=== PATIENT | female | born 1960 | race Caucasian/White ===

== ENCOUNTER → 2017-01-19 | Outpatient (CLI) | payer OTHER ==
[2017-01-19 16:38] VITALS: BP 133/64; PULSE 73; RESP 16; TEMP 98.1; BMI 34.3
[2017-01-19 18:07] LABS: CH 28.2; CHCM 32.8; HCT 37.7 % (34.0-46.0); HDW 2.44; HGB 12.6 gm/dL (11.4-16.0); MCHC 33.5 g/dL (31.0-37.0); MCV 86.5 fL (80.0-100.0); Mean Platelet Volume 9.9; RBC 4.36 m/uL (3.80-5.40); RDW 12.9 % (11.5-15.5); WBC 5.9 k/uL (3.8-10.6)
[2017-01-19 18:20] LABS: Hemoglobin A1C 5.9 % (4.2-6.1)
[2017-01-19 18:32] LABS: Partial Thromboplastin Time 22.9 sec (22.0-30.0); Prothrombin Time 10.3 sec (9.0-12.0)
[2017-01-19 18:41] LABS: ALT 39 U/L (9-52); AST 23 U/L (14-36); Alkaline Phosphatase 82 U/L (38-126); Anion Gap 9 mmol/L; Blood Urea Nitrogen 11 mg/dL (7-17); Calcium 9.7 mg/dL (8.4-10.2); Carbon Dioxide 29 mmol/L (22-30); Chloride 105 mmol/L (98-107); Cholesterol 111 mg/dL (<200); Glucose 87 mg/dL (74-99); HDL Cholesterol 51 mg/dL (40-60); Iron 46 ug/dL (37-170); Non-African American GFR(MDRD) >60 (>60 ml/min/1.73 sqM); Phosphorous 3.7 mg/dL (2.5-4.5); Potassium 5.1 mmol/L (3.5-5.1); Sodium 143 mmol/L (137-145); Total Bilirubin 1.3 mg/dL (0.2-1.3); Total Protein 6.9 g/dL (6.3-8.2); Triglycerides 115 mg/dL (<150)
[2017-01-19 18:50] LABS: Prealbumin 30 mg/dL (18-36); Total Iron Binding Capacity 302 ug/dL (265-497)
[2017-01-19 19:45] LABS: Vitamin B12 418 pg/mL (239-931)
[2017-01-24 18:28] LABS: Selenium 172 mcg/L (63-160)
--- NOTE | 2017-02-23 00:29 | P.PN ---
Progress Note - Text DATE OF SERVICE: 01/19/2017 CHIEF COMPLAINT: Followup gastric bypass. HISTORY OF PRESENT ILLNESS: Lizy Izquierdo is a 56-year-old female, status post gastric bypass March 2015. She is now one year out. Her highest weight in the program was 282 pounds. Her ideal body weight for a 5 foot, 2 frame is 135 pounds. Today she comes in weighing 187 pounds. She has lost 95 pounds in one year. Percent excess weight loss is 64%. Body mass index is reduced from 51.7 down to 34.3. Total BMI point reduction is 17.3. Separately, she reports increased stress in her life whereby she started to eat more for stress eating. She has gained 17 pounds in 4 months. She reports excellent control of her diabetes. She still takes lisinopril for blood pressure, particularly for kidney protection. PAST MEDICAL HISTORY: 1. Super morbid obesity. 2. Obstructive sleep apnea. 3. Diabetes type 2. 4. Hypothyroidism. 5. Gastroesophageal reflux disease. 6. Osteoarthritis. 7. Hypertension. PAST SURGICAL HISTORY: 1. Open cholecystectomy. 2. Upper endoscopy. 3. Status post Elijah-en-Y gastric bypass. MEDICATIONS: 1. Carafate. 2. Prilosec. 3. Nystatin powder. 4. Multivitamin. 5. Synthroid. 6. Lasix. 7. Enalapril. 8. Calcium citrate. 9. Dulcolax. 10. Lipitor. ALLERGIES: Denies. SOCIAL HISTORY: Past tobacco user. FAMILY HISTORY: Denies any Crohn's or ulcerative colitis. No reports of heart condition, DVTs or blood clots within her family. REVIEW OF SYSTEMS: CONSTITUTIONAL: [place] body weight of 135 pounds. Highest weight of 282 pounds. Presently 187 pounds. Weight loss of 95 pounds. Percent excess of 54%. She has gained 17 pounds in 4 months. Body mass index reduced from 51.7 down to 34.3. Total BMI point reduction is 17.3. GASTROINTESTINAL: No reports of dumping syndrome or gastroesophageal reflux disease. ENDOCRINE: History of diabetes type 2, now controlled. Hemoglobin A1c has been 5.6. No reports of active hypothyroidism. RESPIRATORY: Obstructive sleep apnea resolved. CARDIOVASCULAR: Moderate reduction of any hypertension medications including cholesterol medications have been discontinued. MUSCULOSKELETAL: Moderate reduction of her hip including knee pain as well as lower back pain. HEENT: Denies any trouble with vision or hearing. NEUROLOGIC: Denies any headaches or seizure disorders. PSYCH: No reports of depression or suicidal ideation. PHYSICAL EXAM: VITAL SIGNS: 98.1, 73, 16, 133/64; 5 foot 2, 187 pounds. Body mass index 34.3. ABDOMEN: Soft, nontender, nondistended. No palpable incisional hernias. Pannus extends over pubis by over 7 cm. Mild hyperemia noted. GENERAL: Well-developed female in no acute distress. HEENT: No sclera icterus. Extraocular movements grossly intact. NECK: Supple without lymphadenopathy. No JV distention. CHEST: Non-labored respirations and equal bilateral excursions. CARDIOVASCULAR: Regular rate and rhythm. Palpable 2+ radial pulses. MUSCULOSKELETAL: No clubbing, cyanosis or edema. NEUROLOGIC: No focal or lateralizing signs. PSYCH: Appropriate affect. Alert and oriented to person, place and time. LABS: Hemoglobin normal at 12.6. Platelets were 149. Glucose normal at 87. Hemoglobin A1c normal at 5.9. This is reduced from as high as 8.1. Copper was low at 808. Sodium was elevated at 172. ASSESSMENT: 1. Morbid obesity due to excess calories, resolved. 2. Body mass index reduced from 51.7 down to 34.3. 3. Status post Elijah-en-Y gastric bypass. 4. History of gastrojejunal stricture, now resolved. 5. Dysphagia, resolved. 6. Diabetes type 2, insulin-dependent, now resolved. 7. Vitamin B12 deficiency. 8. Elevated bilirubin level. 9. Panniculitis. 10. Status post massive weight loss of 112 pounds. 11. Copper deficiency. 12. Dietary surveillance and counseling. 13. Weight gain following a bariatric procedure. 14. Selenium elevation. PLAN: 1. Would recommend discontinuing increased selenium-enriched foods. 2. Recommend copper rich diet or copper supplement. 3. Overall, she has done fairly well with maintaining weight loss of 64% in over 2 years. 4. She will also follow up with her primary care provider for medical management as well.
== END | disposition home or self-care (01) ==
LOC: BARWHC3 15:22
PROVIDERS: ATTEND Surgery Plastic and Reconstructive Surgery
DX: Z48.815 Encounter for surgical aftercare following surgery on the digestive system (principal); Z98.84 Bariatric surgery status; E21.1 Secondary hyperparathyroidism, not elsewhere classified; E89.1 Postprocedural hypoinsulinemia; D50.8 Other iron deficiency anemias; E44.0 Moderate protein-calorie malnutrition; E55.9 Vitamin D deficiency, unspecified; K74.1 Hepatic sclerosis; N19 Unspecified kidney failure; K50.90 Crohn's disease, unspecified, without complications
CPT/HCPCS: 80053; 80061; 82306; 82525; 82607; 82728; 82746; 83036; 83540; 83550; 83735; 83970; 84100; 84134; 84255; 84425; 84439; 84443; 84590; 84630; 85027; 85610; 85730; 99211

== ENCOUNTER → 2017-12-27 | Outpatient (CLI) | payer OTHER ==
--- NOTE | 2017-12-27 23:17 | MR ---
EXAMINATION TYPE: MR lumbar spine wo con DATE OF EXAM: 12/27/2017 COMPARISON: CT abdomen and pelvis May 21, 2015. HISTORY: Gastric bypass 2015, Low back pain TECHNIQUE: Multiplanar, multisequence imaging of the lumbar spine is performed without IV contrast. FINDINGS: Examination is suboptimal due to patient motion, cannot perform repeat sequences due to cla ustrophobia. Sagittal images of the lumbar spine show vertebral body height to appear satisfactory. There is slight grade 1 retrolisthesis of L5 on S1 redemonstrated. Multilevel disc desiccation is pre sent. There is moderate disc space narrowing L5-S1 level redemonstrated. Note is made of moderate dis c space narrowing with posterior disc herniation T11-T12 level mildly effacing anterior thecal sac an d sagittal images. The conus medullaris is normal in position and signal ending in inferior L1 level. The bone marrow signal intensity is within normal limits. Mild multilevel anterior spurring is pres ent. Axial images at the T12-L1 level shows mild broad disc bulge with right paracentral disc protrusion m ildly effacing the anterior thecal sac and mild facet degenerative changes bilaterally. Bilateral kervin ral foramina are patent. Axial images at L1-L2 and L2-L3 levels show mild facet degenerative changes bilaterally but spinal ca nal is preserved and the bilateral neural foramina are patent. Axial images at L3-L4 level shows mild broad-based disc bulge and [id number] facet degenerative changes bilaterally. Bilateral neural foramina are patent. There is mild effacement of the anterior thecal sac. Axial images at L4-L5 level shows moderate facet degenerative changes bilaterally. Spinal canal is pr eserved. Bilateral neural foramina are patent. Axial images at L5-S1 level show [id number] facet degenerative changes bilaterally. There is sp ondylolisthesis with broad-based posterior disc protrusion minimally effacing anterior thecal sac. Th ere is mild right greater than left bilateral neural foraminal narrowing seen at this level. No suspicious retroperitoneal findings are seen. IMPRESSION: Multilevel degenerative changes in the lumbar spine as detailed above.
== END | disposition home or self-care (01) ==
LOC: RADMRIMAIN 20:09
PROVIDERS: ATTEND Physical Medicine & Rehabilitation
DX: M47.27 Other spondylosis with radiculopathy, lumbosacral region (principal); M47.25 Other spondylosis with radiculopathy, thoracolumbar region
CPT/HCPCS: 72148

== ENCOUNTER → 2018-03-15 | Outpatient (CLI) | payer OTHER ==
[2018-03-15 16:14] VITALS: BP 101/58; PULSE 58; TEMP 97.6; BMI 38.2
--- NOTE | 2018-03-15 17:02 | P.PN ---
Subjective Progress Note Date: 03/15/18 DATE OF SERVICE: 03/15/2018 CHIEF COMPLAINT: Followup gastric bypass. HISTORY OF PRESENT ILLNESS: Lizy Izquierdo is a 56-year-old female, status post gastric bypass March 2015. She was last seen 01/19/2017. She is now 3 years out. Her highest weight in the program was 282 pounds. Her ideal body weight for a 5 foot, 2 frame is 135 pounds. Today she comes in weighing 209 pounds since her last weight of 187 pounds. She has gained 20 pounds and is now on steroids for her back. Total weight gain of 40 pounds since her lowest. She reports trouble with pain of her back preventing her from moving. She has lost 95 pounds in one year. Percent excess weight loss is 64%. Body mass index is reduced from 51.7 down to 34.3. Total BMI point reduction is 17.3. Separately, she reports increased stress in her life whereby she started to eat more for stress eating. She has gained 17 pounds in 4 months. She reports excellent control of her diabetes. She still takes lisinopril for blood pressure, particularly for kidney protection. PAST MEDICAL HISTORY: 1. Super morbid obesity. 2. Obstructive sleep apnea. 3. Diabetes type 2. 4. Hypothyroidism. 5. Gastroesophageal reflux disease. 6. Osteoarthritis. 7. Hypertension. PAST SURGICAL HISTORY: 1. Open cholecystectomy. 2. Upper endoscopy. 3. Status post Eiljah-en-Y gastric bypass. MEDICATIONS: 1. Carafate. 2. Prilosec. 3. Nystatin powder. 4. Multivitamin. 5. Synthroid. 6. Lasix. 7. Enalapril. 8. Calcium citrate. 9. Dulcolax. 10. Lipitor. ALLERGIES: Denies. SOCIAL HISTORY: Past tobacco user. FAMILY HISTORY: Denies any Crohn's or ulcerative colitis. No reports of heart condition, DVTs or blood clots within her family. REVIEW OF SYSTEMS: CONSTITUTIONAL: [place] body weight of 135 pounds. Highest weight of 282 pounds. GASTROINTESTINAL: No reports of dumping syndrome or gastroesophageal reflux disease. ENDOCRINE: History of diabetes type 2, now controlled. Hemoglobin A1c has been 5.6. No reports of active hypothyroidism. RESPIRATORY: Obstructive sleep apnea resolved. CARDIOVASCULAR: Moderate reduction of any hypertension medications including cholesterol medications have been discontinued. MUSCULOSKELETAL: Moderate reduction of her hip including knee pain as well as lower back pain. HEENT: Denies any trouble with vision or hearing. NEUROLOGIC: Denies any headaches or seizure disorders. PSYCH: No reports of depression or suicidal ideation. PHYSICAL EXAM: VITAL SIGNS: 98.1, 73, 16, 133/64; 5 foot 2, 187 pounds. Body mass index 34.3. Vital Signs Temp 97.6 F 03/15/18 16:11 Pulse 58 L 03/15/18 16:11 Resp BP 101/58 03/15/18 16:11 Pulse Ox Intake & Output 03/14/18 03/15/18 03/15/18 18:59 06:59 18:59 Weight 94.846 kg ABDOMEN: Soft, nontender, nondistended. No palpable incisional hernias. Pannus extends over pubis by over 7 cm. Mild hyperemia noted. GENERAL: Well-developed female in no acute distress. HEENT: No sclera icterus. Extraocular movements grossly intact. NECK: Supple without lymphadenopathy. No JV distention. CHEST: Non-labored respirations and equal bilateral excursions. CARDIOVASCULAR: Regular rate and rhythm. Palpable 2+ radial pulses. MUSCULOSKELETAL: No clubbing, cyanosis or edema. NEUROLOGIC: No focal or lateralizing signs. PSYCH: Appropriate affect. Alert and oriented to person, place and time. LABS: Hemoglobin normal at 12.6. Platelets were 149. Glucose normal at 87. Hemoglobin A1c normal at 5.9. This is reduced from as high as 8.1. Copper was low at 808. Sodium was elevated at 172. ASSESSMENT: 1. Morbid obesity due to excess calories, resolved. 2. Body mass index reduced from 51.7 down to 34.3. 3. Status post Elijah-en-Y gastric bypass. 4. History of gastrojejunal stricture, now resolved. 5. Dysphagia, resolved. 6. Diabetes type 2, insulin-dependent, now resolved. 7. Vitamin B12 deficiency. 8. Elevated bilirubin level. 9. Panniculitis. 10. Status post massive weight loss of 112 pounds. 11. Copper deficiency. 12. Dietary surveillance and counseling. 13. Weight gain following a bariatric procedure. 14. Selenium elevation. PLAN: 1. She is adjusting her diet after gaining over 40 pounds. 2. Recommend 2 week protein diet. 3. She has severe lower back pain. 4. Recommend bariatric metabolic panel. Objective - Vital Signs Vital signs: Vital Signs Temp 97.6 F 03/15/18 16:11 Pulse 58 L 03/15/18 16:11 Resp BP 101/58 03/15/18 16:11 Pulse Ox Intake & Output 03/14/18 03/15/18 03/15/18 18:59 06:59 18:59 Weight 94.846 kg
== END | disposition home or self-care (01) ==
LOC: BARWHC3 15:16
PROVIDERS: ATTEND Surgery Plastic and Reconstructive Surgery
DX: Z09 Encounter for follow-up examination after completed treatment for conditions other than malignant neoplasm (principal); M79.3 Panniculitis, unspecified; E53.8 Deficiency of other specified B group vitamins; E80.7 Disorder of bilirubin metabolism, unspecified; R63.4 Abnormal weight loss; E61.0 Copper deficiency; M54.5 Low back pain; E03.9 Hypothyroidism, unspecified; G47.33 Obstructive sleep apnea (adult) (pediatric); Z90.49 Acquired absence of other specified parts of digestive tract; Z71.3 Dietary counseling and surveillance; Z98.84 Bariatric surgery status; Z98.890 Other specified postprocedural states; Z79.899 Other long term (current) drug therapy; Z87.891 Personal history of nicotine dependence; Z68.34 Body mass index [BMI] 34.0-34.9, adult
CPT/HCPCS: 99211

== ENCOUNTER → 2018-03-30 | Outpatient (CLI) | payer OTHER ==
--- NOTE | 2018-03-31 09:54 | MM ---
Reason for exam: screening (asymptomatic). Last mammogram was performed 2 years ago. History: Patient is postmenopausal and is nulliparous. Family history of breast cancer in maternal cousin. Benign stereotactic core biopsy of the left breast, February 15, 2002. Physical Findings: A clinical breast exam by your physician is recommended on an annual basis and results should be correlated with mammographic findings. MG Screening Mammo w CAD Bilateral CC and MLO view(s) were taken. Prior study comparison: April 01, 2016, bilateral MG screening mammo w CAD. December 02, 2014, bilateral MG screening mammo w CAD. There are scattered fibroglandular densities. No significant changes when compared with prior studies. ASSESSMENT: Benign, BI-RAD 2 RECOMMENDATION: Routine screening mammogram of both breasts in 1 year.
== END | disposition home or self-care (01) ==
LOC: RADMAMWWP 15:15
PROVIDERS: ATTEND Obstetrics & Gynecology
DX: Z12.31 Encounter for screening mammogram for malignant neoplasm of breast (principal)
CPT/HCPCS: 77067

== ENCOUNTER → 2018-03-30 | Outpatient (CLI) | payer OTHER ==
[2018-03-30 16:22] LABS: HCT 38.2 % (34.0-46.0); HGB 12.1 gm/dL (11.4-16.0); MCH 27.4 pg (25.0-35.0); MCHC 31.7 g/dL (31.0-37.0); MCV 86.3 fL (80.0-100.0); Platelet Count 153 k/uL (150-450); RBC 4.42 m/uL (3.80-5.40); RDW 13.5 % (11.5-15.5)
[2018-03-30 16:33] LABS: Partial Thromboplastin Time 22.5 sec (22.0-30.0); Prothrombin Time 9.5 sec (9.0-12.0)
[2018-03-30 16:40] LABS: ALT 42 U/L (9-52); AST 30 U/L (14-36); Albumin 4.2 g/dL (3.5-5.0); Alkaline Phosphatase 80 U/L (38-126); Anion Gap 13 mmol/L; Blood Urea Nitrogen 13 mg/dL (7-17); Calcium 9.7 mg/dL (8.4-10.2); Carbon Dioxide 28 mmol/L (22-30); Chloride 104 mmol/L (98-107); Cholesterol 144 mg/dL (<200); Glucose 174 mg/dL (74-99); HDL Cholesterol 56 mg/dL (40-60); LDL Cholesterol,Calculated 54 mg/dL (0-99); Magnesium 1.9 mg/dL (1.6-2.3); Phosphorus 4.5 mg/dL (2.5-4.5); Potassium 4.2 mmol/L (3.5-5.1); Sodium 145 mmol/L (137-145); Total Bilirubin 0.9 mg/dL (0.2-1.3); Total Protein 6.7 g/dL (6.3-8.2); Triglycerides 171 mg/dL (<150)
[2018-03-31 00:34] LABS: Iron Saturation 16.49 (12.00-45.00)
[2018-03-31 00:44] LABS: Vitamin D 25 Hydroxy 25.6 ng/mL (30.0-100.0)
[2018-03-31 00:48] LABS: Folate, Serum >24.0 ng/mL
[2018-03-31 01:24] LABS: Hemoglobin A1C 6.4 % (4.0-6.0)
[2018-03-31 15:30] LABS: Zinc, Serum 63 ug/dL (60-130)
[2018-04-01 10:12] LABS: Vitamin A 58 ug/dL (38-106)
[2018-04-03 06:15] LABS: Vitamin B1 63 ug/L (38-122)
== END ==
LOC: LABWHC1 15:37
PROVIDERS: ATTEND Surgery Plastic and Reconstructive Surgery
DX: E66.01 Morbid (severe) obesity due to excess calories (principal); E21.1 Secondary hyperparathyroidism, not elsewhere classified; E89.1 Postprocedural hypoinsulinemia; D50.8 Other iron deficiency anemias; E44.0 Moderate protein-calorie malnutrition; E55.9 Vitamin D deficiency, unspecified; K74.1 Hepatic sclerosis; N19 Unspecified kidney failure; K50.90 Crohn's disease, unspecified, without complications
CPT/HCPCS: 36415; 77067; 80053; 80061; 82306; 82525; 82607; 82728; 82746; 83036; 83540; 83550; 83735; 83970; 84100; 84134; 84255; 84425; 84443; 84590; 84630; 85027; 85610; 85730

== ENCOUNTER 2018-09-03 16:04 | Emergency (ER) | payer OTHER ==
[2018-09-03 16:18] VITALS: BP 143/74; PULSE 102; RESP 18; TEMP 98.7
[2018-09-03] MEDS ORDERED: HYDROmorphone 1 MG/ML 1 ML SYRINGE IVP STA (16:46)
[2018-09-03] MEDS ORDERED: DIAZEPAM 5 MG TAB PO STA (16:46)
[2018-09-03] MEDS ORDERED: IBUPROFEN 800 MG TAB PO STA (16:46)
--- NOTE | 2018-09-03 16:47 | ED ---
Neck Injury/Pain HPI - General Chief Complaint: Extremity Injury, Upper Stated Complaint: Neck/Shoulder Pain Time Seen by Provider: 09/03/18 16:33 Source: RN notes reviewed, old records reviewed Mode of arrival: wheelchair Limitations: no limitations - History of Present Illness Initial Comments: This is a 58-year-old female the ER for evaluation. Patient complaining today for evaluation of neck pain severe neck pain. Patient has neck pain torticollis , history of same. Patient states she slept in a chair and woke up with symptoms, no trauma. Patient denies any other significant complaints area patient does have history of back pain - Related Data Home Medications Medication Instructions Recorded Confirmed Levothyroxine Sodium [Synthroid] 112 mcg PO QAM 01/14/15 03/15/18 Enalapril [Vasotec] 2.5 mg PO QAM 04/16/15 03/15/18 Atorvastatin Calcium [Lipitor] 10 mg PO DAILY 08/13/15 03/15/18 Bisacodyl [Dulcolax] 5 mg PO DAILY 03/01/16 03/15/18 Calcium Citrate 500 mg PO BID 03/01/16 03/15/18 Furosemide 40 mg PO DAILY 03/01/16 03/15/18 Multivitamins, Thera [Multivitamin] 1 tab PO DAILY 01/19/17 03/15/18 Allergies Allergy/AdvReac Type Severity Reaction Status Date / Time No Known Allergies Allergy Verified 09/03/18 16:18 Review of Systems ROS Statement: Those systems with pertinent positive or pertinent negative responses have been documented in the HPI. ROS Other: All systems not noted in ROS Statement are negative. Past Medical History Past Medical History: Diabetes Mellitus, GERD/Reflux, Hyperlipidemia, Hypertension, Osteoarthritis (OA), Sleep Apnea/CPAP/BIPAP, Thyroid Disorder Additional Past Medical History / Comment(s): fatty liver, constipation History of Any Multi-Drug Resistant Organisms: None Reported Past Surgical History: Bariatric Surgery, Cholecystectomy, Orthopedic Surgery, Uterine Ablation Additional Past Surgical History / Comment(s): r shoulder, r knee replaced, refugio foot surgery at age 13, RNY gastric bypass 01/26 LUMBAR EPIDURAL INJECTIONS Past Anesthesia/Blood Transfusion Reactions: No Reported Reaction Past Psychological History: No Psychological Hx Reported Smoking Status: Former smoker Past Alcohol Use History: None Reported Past Drug Use History: None Reported - Past Family History Father Family Medical History: Coronary Artery Disease (CAD), Myocardial Infarction ([place] ) Mother Family Medical History: Myocardial Infarction ([place]) General Exam Limitations: no limitations General appearance: alert, in no apparent distress Head exam: Present: atraumatic, normocephalic, normal inspection, other ( Spasmodic torticollis) Eye exam: Present: normal appearance, PERRL, EOMI. Absent: scleral icterus, conjunctival injection, periorbital swelling ENT exam: Present: normal exam, mucous membranes moist Neck exam: Present: normal inspection. Absent: tenderness, meningismus, lymphadenopathy Respiratory exam: Present: normal lung sounds bilaterally. Absent: respiratory distress, wheezes, rales, rhonchi, stridor Cardiovascular Exam: Present: regular rate, normal rhythm, normal heart sounds. Absent: systolic murmur, diastolic murmur, rubs, gallop, clicks GI/Abdominal exam: Present: soft, normal bowel sounds. Absent: distended, tenderness, guarding, rebound, rigid Extremities exam: Present: normal inspection, full ROM, normal capillary refill. Absent: tenderness, pedal edema, joint swelling, calf tenderness Back exam: Present: normal inspection Neurological exam: Present: alert, oriented X3, CN II-XII intact Psychiatric exam: Present: normal affect, normal mood Skin exam: Present: warm, dry, intact, normal color. Absent: rash Course Vital Signs 09/03/18 16:15 Temperature 98.7 F Pulse Rate 102 H Respiratory 18 Rate Blood Pressure 143/74 O2 Sat by Pulse 97 Oximetry - Reevaluation(s) Reevaluation #1: 09/03/18 17:41 Patient symptoms are much improved able to move her neck with much greater range of motion with treatment Medical Decision Making - Medical Decision Making 58 female the ER spasmodic torticollis, patient's neck range of motion is much improved currently. Patient can be discharged home, patient will follow-up with orthopedics Tomorrow as directed and previously scheduled Disposition Clinical Impression: Torticollis Disposition: HOME SELF-CARE Condition: Good Instructions: Spasmodic Torticollis (ED) Is patient prescribed a controlled substance at d/c from ED?: No Referrals: Fabrizio Benavidez DO [Primary Care Provider] - 1-2 days
[2018-09-03] MEDS ORDERED: HYDROmorphone 1 MG/ML 1 ML SYRINGE IM STA ×2 (16:50→17:04)
== END 2018-09-03 17:45 | disposition home or self-care (01) ==
LOC: EC 16:04
DX: M43.6 Torticollis (principal); E78.5 Hyperlipidemia, unspecified; I10 Essential (primary) hypertension; M19.90 Unspecified osteoarthritis, unspecified site; G47.30 Sleep apnea, unspecified; Z99.89 Dependence on other enabling machines and devices; E07.9 Disorder of thyroid, unspecified; Z96.651 Presence of right artificial knee joint; Z96.611 Presence of right artificial shoulder joint; Z87.891 Personal history of nicotine dependence; Z79.899 Other long term (current) drug therapy
CPT/HCPCS: 99283; 96372; J1170

== ENCOUNTER → 2019-07-05 | Outpatient (CLI) | payer OTHER ==
--- NOTE | 2019-07-06 07:35 | US ---
EXAMINATION TYPE: US pelvis complete transvag DATE OF EXAM: 07/05/2019 COMPARISON: NONE CLINICAL HISTORY: N95.0 Postmenopausal bleeding. Uterine ablation 2005 had bleeding x 3 times. TECHNIQUE: Transvaginal (TV) and Transabdominal (TA) . Transabdominal sonographic images of the pel vis were acquired. Transvaginal sonographic images were medically necessary to better assess the fol lowing anatomy: Uterus and ovaries. EXAM MEASUREMENTS: Uterus: 5.8 x 2.1 x 3.0 cm Endometrial Stripe: Not visualized cm Right Ovary: 2.5 x 1.2 x 1.7cm. 1. Uterus: Anteverted Heterogenous hypoechoic area 1.0 x .8 x 1.1cm. 2. Endometrium: Not visualized. 3. Right Ovary: wnl 4. Left Ovary: Obscured by overlying bowel gas 5. Bilateral Adnexa: wnl 6. Posterior cul-de-sac: wnl IMPRESSION: 1. Uterine fibroid. 2. 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
== END | disposition home or self-care (01) ==
LOC: RADUSWWP 16:27
PROVIDERS: ATTEND Obstetrics & Gynecology
DX: D25.9 Leiomyoma of uterus, unspecified (principal)
CPT/HCPCS: 76830; 76856

== ENCOUNTER 2021-07-01 07:19 | Day surgery (SDC) | payer OTHER ==
[2021-06-30 08:37] VITALS: BMI 40.8
[~2021-07-01 07:19] MED LIST: LACTATED RINGERS 1,000 ML IV SCH; LIDOCAINE 1% (10MG/ML) FOR IV START INTRADERMA PRN
[2021-07-01 08:35] VITALS: RESP 16; TEMP 97.6
[2021-07-01 08:38] LABS: Glucose,Whole Blood 107 mg/dL (75-99)
--- NOTE | 2021-07-01 08:38 | P.GSHP ---
History of Present Illness H&P Date: 07/01/21 CHIEF COMPLAINT: Colon screen HISTORY OF PRESENT ILLNESS: The patient is a 61-year-old female who presents for colon screen. Lower endoscopy was offered for further evaluation and management. PAST MEDICAL HISTORY: Please see list. PAST SURGICAL HISTORY: Please see list. MEDICATIONS: Please see list. ALLERGIES: Please see list. SOCIAL HISTORY: No illicit drug use FAMILY HISTORY: No reports of Crohn disease or ulcerative colitis. REVIEW OF ORGAN SYSTEMS: CONSTITUTIONAL: No reports of fevers or chills. PHYSICAL EXAM: VITAL SIGNS: Stable GENERAL: Well-developed pleasant in no acute distress. HEENT: No scleral icterus. Extraocular movements grossly intact. Moist buccal mucosa. NECK: Supple without lymphadenopathy. CHEST: Unlabored respirations. Equal bilateral excursions. CARDIOVASCULAR: Regular rate and rhythm. Distal 2+ pulses. ABDOMEN: Soft, nontender, nondistended. MUSCULOSKELETAL: No clubbing, cyanosis, or edema. ASSESSMENT: 1. Colon screen. PLAN: 1. Recommend proceeding with a lower endoscopy Past Medical History Past Medical History: Diabetes Mellitus, GERD/Reflux, Hyperlipidemia, Hypertension, Osteoarthritis (OA), Sleep Apnea/CPAP/BIPAP, Thyroid Disorder Additional Past Medical History / Comment(s): constipation History of Any Multi-Drug Resistant Organisms: None Reported Past Surgical History: Bariatric Surgery, Cholecystectomy, Joint Replacement, Orthopedic Surgery, Uterine Ablation Additional Past Surgical History / Comment(s): r shoulder, r knee replaced, refugio foot surgery at age 13, RNY gastric bypass 01/26, LUMBAR EPIDURAL INJECTIONS, COLONOSCOPY Past Anesthesia/Blood Transfusion Reactions: No Reported Reaction Smoking Status: Former smoker - Past Family History Father Family Medical History: Coronary Artery Disease (CAD), Myocardial Infarction ([place]) Mother Family Medical History: Myocardial Infarction ([place]) Medications and Allergies Home Medications Medication Instructions Recorded Confirmed Type Levothyroxine Sodium [Synthroid] 112 mcg PO QAM 01/14/15 06/30/21 History Enalapril [Vasotec] 2.5 mg PO QAM 04/16/15 06/30/21 History Atorvastatin Calcium [Lipitor] 10 mg PO DAILY 08/13/15 06/30/21 History Calcium Citrate 500 mg PO BID 03/01/16 06/30/21 History Multivitamins, Thera [Multivitamin] 1 tab PO DAILY 01/19/17 06/30/21 History Cranberry Fruit Extract [Cranberry] 500 mg PO DAILY 06/30/21 06/30/21 History Ferrous Sulfate [Feosol] 325 mg PO DAILY 06/30/21 06/30/21 History Gabapentin 600 mg PO TID 06/30/21 06/30/21 History Ibuprofen [Motrin] 800 mg PO Q8H 06/30/21 06/30/21 History Insulin Degludec [Tresiba] 30 units SQ HS 06/30/21 06/30/21 History Magnesium 250 mg PO DAILY 06/30/21 06/30/21 History Omeprazole 40 mg PO DAILY 06/30/21 06/30/21 History metFORMIN HCL [Glucophage] 500 mg PO BID 06/30/21 06/30/21 History tiZANidine [Zanaflex] 4 mg PO TID 06/30/21 06/30/21 History traMADol HCL [Ultram] 50 mg PO Q6HR PRN 06/30/21 06/30/21 History Allergies Allergy/AdvReac Type Severity Reaction Status Date / Time No Known Allergies Allergy Verified 07/01/21 08:17 Surgical - Exam Vital Signs Temp Pulse Resp BP Pulse Ox 97.6 F 63 16 158/70 97 07/01/21 08:25 07/01/21 08:25 07/01/21 08:25 07/01/21 08:25 07/01/21 08:25
[2021-07-01] MEDS ORDERED: PROPOFOL 10 MG/ML 20 ML VIAL IV ONE (08:39)
[2021-07-01 10:37] VITALS: BP 117/74; PULSE 88
--- NOTE | 2021-07-01 11:35 | P.PCN ---
Date of Procedure: 07/01/21 Description of Procedure: PREOPERATIVE DIAGNOSIS: Personal history of colon polyps POSTOPERATIVE DIAGNOSIS: Tubular adenoma cecum Tubular adenoma ascending colon Tubular adenoma transverse colon Tubular adenoma hepatic flexure Sigmoid diverticulosis OPERATION: Colonoscopy to the ileocecal valve and appendiceal orifice, cecum Colonoscopy with hot snare polypectomy Colonoscopy with injection of Heaven ink, 2 mL midtransverse colon SURGEON: Kiley Guillen MD. ANESTHESIA: MAC. INDICATIONS: The patient is an 61-year-old female who presents with personal history of colon polyps. Last colonoscopy over 5 years ago. Benefits and risks were described and informed consent was obtained. DESCRIPTION OF PROCEDURE: The patient had undergone Sutab prep. The patient had been brought into the operating room and laid in the left lateral decubitus position. After adequate intravenous sedation, the rectum was examined with 2% lidocaine jelly. No external hemorrhoids were encountered. The rectal tone was within normal limits. No lesions were palpated in the rectal vault. An Olympus colonoscope was advanced until the cecum, ileocecal valve and appendiceal orifice were clearly viewed. The prep was good. Sigmoid diverticulosis was encountered. Colonic polyps were found and removed. No evidence of focal colitis was found. Retroflexion of the scope demonstrated grade 1 internal hemorrhoids without active bleeding or inflammation. The colon was desufflated. The patient had tolerated the procedure well. Withdrawal time was over 6 minutes. FINDINGS: Aronchick preparation quality scale 2 (1-5) Internal hemorrhoids, grade 1 No external hemorrhoids No arteriovenous malformations. Sigmoid diverticulosis Removal of 16 polyps: - Snare polypectomy of distal transverse colon 3, 5 to 8 mm tubulovillous adenoma polyp. - Snare polypectomy hepatic flexure, 5 mm tubulovillous adenoma polyp. - Snare polypectomy proximal ascending colon 3, 8 mm to 10 mm villous adenoma polyp. - Snare polypectomy mid ascending colon polyp 2, 4 to 6 mm flat villous adenoma polyp. - Snare polypectomy distal ascending colon polyp 3, 8-10 mm flat villous adenoma polyp. - Snare polypectomy mid transverse colon polyp colon polyp 2, 6-8 mm flat villous adenoma polyp. - Snare polypectomy proximal transverse colon polyp 2, 6-8 mm flat villous adenoma polyp. Injection of Heaven ink 2 mL at mid transverse colon due to incomplete resection No focal colitis. RECOMMENDATIONS: Given severity of tubular adenomas, recommend repeat colonoscopy 1 year, 2021 Plan - Discharge Summary Discharge Rx Participant: No New Discharge Prescriptions: Continue Levothyroxine Sodium [Synthroid] 112 mcg PO QAM Enalapril [Vasotec] 2.5 mg PO QAM Atorvastatin Calcium [Lipitor] 10 mg PO DAILY Calcium Citrate 500 mg PO BID Multivitamins, Thera [Multivitamin (formulary)] 1 tab PO DAILY metFORMIN HCL [Glucophage] 500 mg PO BID Gabapentin 600 mg PO TID Ferrous Sulfate [Iron (65 MG Elemental)] 325 mg PO DAILY Omeprazole 40 mg PO DAILY Cranberry Fruit Extract [Cranberry] 500 mg PO DAILY traMADol HCL [Ultram] 50 mg PO Q6HR PRN PRN Reason: Pain tiZANidine [Zanaflex] 4 mg PO TID Magnesium 250 mg PO DAILY Insulin Degludec [Tresiba] 30 units SQ HS Discontinued Ibuprofen [Motrin] 800 mg PO Q8H Discharge Medication List Levothyroxine Sodium [Synthroid] 112 mcg PO QAM 01/14/15 [History] Enalapril [Vasotec] 2.5 mg PO QAM 04/16/15 [History] Atorvastatin Calcium [Lipitor] 10 mg PO DAILY 08/13/15 [History] Calcium Citrate 500 mg PO BID 03/01/16 [History] Multivitamins, Thera [Multivitamin (formulary)] 1 tab PO DAILY 01/19/17 [History] Cranberry Fruit Extract [Cranberry] 500 mg PO DAILY 06/30/21 [History] Ferrous Sulfate [Iron (65 MG Elemental)] 325 mg PO DAILY 06/30/21 [History] Gabapentin 600 mg PO TID 06/30/21 [History] Insulin Degludec [Tresiba] 30 units SQ HS 06/30/21 [History] Magnesium 250 mg PO DAILY 06/30/21 [History] Omeprazole 40 mg PO DAILY 06/30/21 [History] metFORMIN HCL [Glucophage] 500 mg PO BID 06/30/21 [History] tiZANidine [Zanaflex] 4 mg PO TID 06/30/21 [History] traMADol HCL [Ultram] 50 mg PO Q6HR PRN 06/30/21 [History] Follow up Appointment(s)/Referral(s): Kiley Guillen MD [STAFF PHYSICIAN] - 07/14/21 Patient Instructions/Handouts: *Surgery [facility] - (Anesthesia) Endoscopy Discharge Instructions, Diverticulosis (DC), Colorectal Polyps (DC), Diverticulosis Diet (GEN), Colonoscopy (DC) Activity/Diet/Wound Care/Special Instructions: Repeat colonoscopy in one year, 2021. NO NSAIDS with gastric bypass Discharge Disposition: HOME SELF-CARE
== END 2021-07-01 10:38 | disposition home or self-care (01) ==
LOC: ORWHC2ENDO 07:19
PROVIDERS: ATTEND Surgery Plastic and Reconstructive Surgery
DX: D12.0 Benign neoplasm of cecum (principal); D12.2 Benign neoplasm of ascending colon; D12.3 Benign neoplasm of transverse colon; K57.30 Diverticulosis of large intestine without perforation or abscess without bleeding; E11.9 Type 2 diabetes mellitus without complications; E78.5 Hyperlipidemia, unspecified; I10 Essential (primary) hypertension; M19.90 Unspecified osteoarthritis, unspecified site; Z79.1 Long term (current) use of non-steroidal anti-inflammatories (NSAID); Z79.4 Long term (current) use of insulin; Z82.49 Family history of ischemic heart disease and other diseases of the circulatory system; Z87.891 Personal history of nicotine dependence; Z90.49 Acquired absence of other specified parts of digestive tract; Z98.84 Bariatric surgery status; G47.33 Obstructive sleep apnea (adult) (pediatric); Z99.81 Dependence on supplemental oxygen; E07.9 Disorder of thyroid, unspecified
CPT/HCPCS: 45385; 44404; 88305; J2704

== ENCOUNTER → 2021-07-03 | Outpatient (CLI) | payer OTHER ==
[2021-07-03 11:22] LABS: Basophils # (A) 0.03 X 10*3/uL (0.00-0.10); Basophils % (A) 0.5 %; Eosinophils # (A) 0.12 X 10*3/uL (0.04-0.35); Eosinophils % (A) 2.2 %; HGB 11.9 g/dL (12.0-15.0); Lymphocytes # (A) 1.55 X 10*3/uL (0.90-5.00); MCHC 30.5 g/dL (32.0-37.0); MCV 88.6 fL (80.0-97.0); Mean Platelet Volume 12.2 fL (9.5-12.2); Monocytes % (A) 5.4 %; Neutrophils % (A) 63.4 %; Platelet Count 135 X 10*3/uL (140-440); RDW 12.8 % (11.5-14.5); WBC 5.53 X 10*3/uL (4.50-10.00)
[2021-07-03 11:38] LABS: % Iron Saturation 34.67 (12.00-45.00); African American GFR (CKD) 92.9 (60.0-200.0); Albumin 4.1 g/dL (3.80-4.90); Albumin/Globulin Ratio 1.78 (1.60-3.17); Anion Gap 7.9 mmol/L (4.00-12.00); BUN/Creat Ratio 13.75 Ratio (12.00-20.00); Calcium 9.1 mg/dL (8.7-10.3); Carbon Dioxide 30.1 mmol/L (21.6-31.8); Chol/HDL Ratio 3.02; Globulin 2.3 g/dL (1.6-3.3); LDL Cholesterol,Calculated 55.6 mg/dL (0.0-131.0); Magnesium 1.6 mg/dL (1.5-2.4); Non-African American GFR(CKD) 80.1 (60.0-200.0); Potassium 4.6 mmol/L (3.5-5.5); Total Bilirubin 1.9 mg/dL (0.3-1.2); Total Protein 6.4 g/dL (6.2-8.2); VLDL Calculation 27.4 mg/dL (5.00-40.00)
[2021-07-03 12:20] LABS: Ferritin 78.3 ng/mL (10.0-291.0)
[2021-07-03 17:05] LABS: Hemoglobin A1C 6.9 % (4.0-6.0)
== END | disposition home or self-care (01) ==
LOC: LABWHC1 07:29
PROVIDERS: ATTEND Family Medicine
DX: E55.9 Vitamin D deficiency, unspecified (principal); D50.9 Iron deficiency anemia, unspecified; E11.9 Type 2 diabetes mellitus without complications; Z98.84 Bariatric surgery status
CPT/HCPCS: 36415; 80053; 80061; 82180; 82306; 82607; 82728; 83036; 83540; 83550; 83735; 84207; 85025

== ENCOUNTER → 2021-11-18 | Outpatient (CLI) | payer OTHER ==
--- NOTE | 2021-11-19 03:25 | MR ---
EXAMINATION TYPE: MR lumbar spine wo con DATE OF EXAM: 11/18/2021 COMPARISON: 12/27/2017 HISTORY: Low back pain into right and left buttocks for 6 years. Lumbar vertebrae have fairly normal alignment. There is a few millimeter anterior subluxation of L4 i n relation L5. There is no spondylolysis. There is slight narrowing of the disc spaces at L4-5 and L5 -S1. There is a small posterior disc herniation at L5-S1 without impingement on the spinal canal. The lumbar nerve roots appear normal. The neural foramina are fairly well maintained. There is no spinal stenosis. There is no lumbar paraspinal mass. I see no focal bone destruction. IMPRESSION: There is a minimal degenerative first-degree L4-5 spondylolisthesis without change. No spinal stenosi s. Small posterior L5-S1 disc herniation without change.
== END | disposition home or self-care (01) ==
LOC: RADMRIMAIN 17:40
PROVIDERS: ATTEND Physical Medicine & Rehabilitation
DX: M43.16 Spondylolisthesis, lumbar region (principal); M51.27 Other intervertebral disc displacement, lumbosacral region
CPT/HCPCS: 72148

== ENCOUNTER → 2022-02-02 | Outpatient (CLI) | payer OTHER ==
--- NOTE | 2022-02-03 16:55 | BD ---
EXAMINATION TYPE: Axial Bone Density DATE OF EXAM: 02/02/2022 COMPARISON: NONE CLINICAL HISTORY: 61 years year old Female. ICD-10 CODE: N95.1 post menopausal symptoms Height: 5 FT 2 1/2 IN Weight: 222 FRAX RISK QUESTIONS: Alcohol (3 or more units per day): NO Family History (Parent hip fracture): NO Glucocorticoids (More than 3mos): STEROID INJ EVERY 3 MONTHS (Ex: prednisone, prednisolone, methylprednisolone, dexamethasone, and hydrocortisone). History of Fracture in Adulthood: NO Secondary Osteoporosis: 1. Type 1 Diabetes: NO 2. Hyperthyroidism: NO 3. Menopause before 45: YES 4. Malnutrition: NO 5. Chronic liver disease: NO Rheumatoid Arthritis: NO Current Tobacco Use: FORMER RISK FACTORS HISTORY OF: Surgery to Spine/Hip(right/left)/Wrist (right/left): NO Family History of Osteoporosis: NO Active: NO Diet low in dairy products/other sources of calcium: NO Postmenopausal woman: YES Take estrogen and/or progesterone medications: NO Lost more than 2 inches in height since high school: NO Frequent falls: NO Poor Health: FAIR Hyperparathyroidism: NO Adrenal Insufficiency: NO MEDICATIONS: Thyroid Medications: YES Which medication: UNSURE THE NAME How Lon PLUS YEARS Additional Medication THYROID MEDS, ANAL OPRIL, LIPITOR, GABAPENTIN, PREVACID ,ROBERTSON SAD INE, METFORMI N, INSULIN Additional History: EXAM MEASUREMENTS: Bone mineral densitometry was performed using the [employer] System. Bone mineral density as measured about the Lumbar spine is: ----- L1-L4(G/cm2): 1.312 T Score Values are as follows: ----- L1: 1.1 ----- L2: 0.5 ----- L3: 1.5 ----- L4: 1.1 ----- L1-L4: 1.1 Bone mineral density has: DECREASED -2.5 % since study of: 2015 Bone mineral density about the R hip (g/cm2): 0.824 Bone mineral density about the L hip (g/cm2): 0.939 T Score values are as follows: -----R Neck: -1.5 -----L Neck: -0.7 -----R Total: -0.9 -----L Total: 0.3 Bone mineral density has: DECREASED -13.2 % since study of: 2016 FRAX%s: The graph provided illustrates a 7.4 % chance for a major osteoporotic fx and a 0.6 % chance for the hips probability for fx in 10 years time. IMPRESSION: Osteopenia (T Score between -2.5 and -1). There is slightly increased risk of fracture and the patient may be considered for treatment. Re-Screen 2-5 years. NOTE: T-SCORE=SD OF THE YOUNG ADULT MEAN.
== END | disposition home or self-care (01) ==
LOC: RADBDWWP 15:49
PROVIDERS: ATTEND Obstetrics & Gynecology
DX: M85.851 Other specified disorders of bone density and structure, right thigh (principal); N95.1 Menopausal and female climacteric states
CPT/HCPCS: 77080

== ENCOUNTER → 2022-08-25 | Day surgery (SDC) | payer OTHER ==
[2022-08-24 13:06] VITALS: BMI 40.6
[~2022-08-25] MED LIST changes: +LIDOCAINE 2% INJ 20 MG/ML (2 ML VIAL) ONE; +MIDAZOLAM 2 MG/2 ML VIAL ONE; +PROPOFOL 10 MG/ML 20 ML VIAL IV ONE; +fentaNYL (PF) 50 MCG/ML 2 ML AMP ONE
[2022-08-25 07:29] VITALS: TEMP 96.9
[2022-08-25 07:36] LABS: Glucose,Whole Blood 126 mg/dL (70-110)
--- NOTE | 2022-08-25 07:38 | P.GSHP ---
History of Present Illness H&P Date: 08/25/22 CHIEF COMPLAINT: Colon screen HISTORY OF PRESENT ILLNESS: The patient is a 62-year-old female who presents for colon screen. Lower endoscopy was offered for further evaluation and management. PAST MEDICAL HISTORY: Please see list. PAST SURGICAL HISTORY: Please see list. MEDICATIONS: Please see list. ALLERGIES: Please see list. SOCIAL HISTORY: No illicit drug use FAMILY HISTORY: No reports of Crohn disease or ulcerative colitis. REVIEW OF ORGAN SYSTEMS: CONSTITUTIONAL: No reports of fevers or chills. PHYSICAL EXAM: VITAL SIGNS: Stable GENERAL: Well-developed pleasant in no acute distress. HEENT: No scleral icterus. Extraocular movements grossly intact. Moist buccal mucosa. NECK: Supple without lymphadenopathy. CHEST: Unlabored respirations. Equal bilateral excursions. CARDIOVASCULAR: Regular rate and rhythm. Distal 2+ pulses. ABDOMEN: Soft, nontender, nondistended. MUSCULOSKELETAL: No clubbing, cyanosis, or edema. ASSESSMENT: 1. Colon screen. PLAN: 1. Recommend proceeding with a lower endoscopy Past Medical History Past Medical History: Diabetes Mellitus, GERD/Reflux, Hyperlipidemia, Hypertension, Osteoarthritis (OA), Sleep Apnea/CPAP/BIPAP, Thyroid Disorder Additional Past Medical History / Comment(s): chronic back pain, constipation,COVID February 2021,no cpap after wt loss History of Any Multi-Drug Resistant Organisms: None Reported Past Surgical History: Bariatric Surgery, Cholecystectomy, Joint Replacement, Orthopedic Surgery, Uterine Ablation Additional Past Surgical History / Comment(s): r shoulder, r knee replaced, refugio foot surgery at age 13, RNY gastric bypass 01/26, LUMBAR EPIDURAL INJECTIONS, COLONOSCOPY,mult pain procedures Past Anesthesia/Blood Transfusion Reactions: No Reported Reaction Smoking Status: Former smoker - Past Family History Father Family Medical History: Coronary Artery Disease (CAD), Myocardial Infarction (SC) Mother Family Medical History: Coronary Artery Disease (CAD), Myocardial Infarction (SC) Medications and Allergies Home Medications Medication Instructions Recorded Confirmed Type Levothyroxine Sodium [Synthroid] 112 mcg PO QAM 01/14/15 08/24/22 History Enalapril [Vasotec] 2.5 mg PO QAM 04/16/15 08/24/22 History Atorvastatin Calcium [Lipitor] 10 mg PO DAILY 08/13/15 08/25/22 History Calcium Citrate 500 mg PO DAILY 03/01/16 08/24/22 History Multivitamins, Thera [Multivitamin 1 tab PO DAILY 01/19/17 08/25/22 History (formulary)] Cranberry Fruit Extract [Cranberry] 500 mg PO DAILY 06/30/21 08/24/22 History Ferrous Sulfate [Iron (65 MG 325 mg PO DAILY 06/30/21 08/24/22 History Elemental)] Gabapentin 600 mg PO TID 06/30/21 08/24/22 History Insulin Degludec [Tresiba] 30 units SQ HS 06/30/21 08/25/22 History Magnesium 250 mg PO DAILY 06/30/21 08/24/22 History Omeprazole 40 mg PO QAM 06/30/21 08/24/22 History metFORMIN HCL [Glucophage] 500 mg PO DAILY 06/30/21 08/25/22 History tiZANidine [Zanaflex] 2 mg PO TID 06/30/21 08/25/22 History traMADol HCL [Ultram] 50 mg PO Q6HR PRN 06/30/21 08/25/22 History Ibuprofen 800 mg PO Q8H PRN 10/16/21 08/24/22 History Cholecalciferol [Vitamin D3 (25 25 mcg PO DAILY 08/24/22 08/25/22 History Mcg = 1000 Iu)] Allergies Allergy/AdvReac Type Severity Reaction Status Date / Time No Known Allergies Allergy Verified 08/25/22 07:21 Surgical - Exam Vital Signs Temp Pulse Resp BP Pulse Ox 96.9 F L 68 18 155/100 96 08/25/22 07:26 08/25/22 07:26 08/25/22 07:26 08/25/22 07:26 08/25/22 07:26 Results - Labs Abnormal Lab Results - Last 24 Hours (Table) 08/25/22 Range/Units 07:34 POC Glucose (mg/dL) 126 H (70-110) mg/dL
--- NOTE | 2022-08-25 07:58 | P.OP ---
Date of Procedure: 08/25/22 Description of Procedure: PREOPERATIVE DIAGNOSIS: Personal history of colon polyps POSTOPERATIVE DIAGNOSIS: Tubular adenoma sigmoid colon Tubular adenoma transverse colon Sigmoid diverticulosis OPERATION: Colonoscopy to the ileocecal valve and appendiceal orifice, cecum Colonoscopy with hot snare polypectomy SURGEON: Kiley Guillen MD. ANESTHESIA: MAC. INDICATIONS: The patient is an 62-year-old female who presents personal history of colon polyps. Last colonoscopy 5 years. Benefits and risks were described and informed consent was obtained. DESCRIPTION OF PROCEDURE: The patient had undergone Sutab prep. The patient had been brought into the operating room and laid in the left lateral decubitus position. After adequate intravenous sedation, the rectum was examined with 2% lidocaine jelly. No external hemorrhoids were encountered. The rectal tone was within normal limits. No lesions were palpated in the rectal vault. An Olympus colonoscope was advanced until the cecum, ileocecal valve and appendiceal orifice were clearly viewed. The prep was good. Sigmoid diverticulosis was encountered. Colonic polyps were found and removed. No evidence of focal colitis was found. Retroflexion of the scope demonstrated grade 1 internal hemorrhoids without active bleeding or inflammation. The colon was desufflated. The patient had tolerated the procedure well. Withdrawal time was over 6 minutes. FINDINGS: Aronchick preparation quality scale 2 (1-5) Internal hemorrhoids, grade 1 No external hemorrhoids No arteriovenous malformations. Sigmoid diverticulosis Tattooed area at the distal ascending colon Removal of 2 polyps: - Cold forceps biopsy at 15 cm from the anal verge, 4 mm polyp, sigmoid colon - Cold forceps biopsy at mid transverse colon, 5 mm polyp. No focal colitis. RECOMMENDATIONS: Repeat colonoscopy in 3 years, 2024 Plan - Discharge Summary Discharge Rx Participant: No New Discharge Prescriptions: Continue Levothyroxine Sodium [Synthroid] 112 mcg PO QAM Enalapril [Vasotec] 2.5 mg PO QAM Atorvastatin Calcium [Lipitor] 10 mg PO DAILY Calcium Citrate 500 mg PO DAILY Multivitamins, Thera [Multivitamin (formulary)] 1 tab PO DAILY metFORMIN HCL [Glucophage] 500 mg PO DAILY Gabapentin 600 mg PO TID Ferrous Sulfate [Iron (65 MG Elemental)] 325 mg PO DAILY Omeprazole 40 mg PO QAM Cranberry Fruit Extract [Cranberry] 500 mg PO DAILY traMADol HCL [Ultram] 50 mg PO Q6HR PRN PRN Reason: Pain tiZANidine [Zanaflex] 2 mg PO TID Magnesium 250 mg PO DAILY Insulin Degludec [Tresiba] 30 units SQ HS Cholecalciferol [Vitamin D3 (25 Mcg = 1000 Iu)] 25 mcg PO DAILY Discontinued Ibuprofen 800 mg PO Q8H PRN PRN Reason: Pain Discharge Medication List Levothyroxine Sodium [Synthroid] 112 mcg PO QAM 01/14/15 [History] Enalapril [Vasotec] 2.5 mg PO QAM 04/16/15 [History] Atorvastatin Calcium [Lipitor] 10 mg PO DAILY 08/13/15 [History] Calcium Citrate 500 mg PO DAILY 03/01/16 [History] Multivitamins, Thera [Multivitamin (formulary)] 1 tab PO DAILY 01/19/17 [History] Cranberry Fruit Extract [Cranberry] 500 mg PO DAILY 06/30/21 [History] Ferrous Sulfate [Iron (65 MG Elemental)] 325 mg PO DAILY 06/30/21 [History] Gabapentin 600 mg PO TID 06/30/21 [History] Insulin Degludec [Tresiba] 30 units SQ HS 06/30/21 [History] Magnesium 250 mg PO DAILY 06/30/21 [History] Omeprazole 40 mg PO QAM 06/30/21 [History] metFORMIN HCL [Glucophage] 500 mg PO DAILY 06/30/21 [History] tiZANidine [Zanaflex] 2 mg PO TID 06/30/21 [History] traMADol HCL [Ultram] 50 mg PO Q6HR PRN 06/30/21 [History] Cholecalciferol [Vitamin D3 (25 Mcg = 1000 Iu)] 25 mcg PO DAILY 08/24/22 [History] Follow up Appointment(s)/Referral(s): Kiley Guillen MD [STAFF PHYSICIAN] - As Needed Patient Instructions/Handouts: Colorectal Polyps (GEN), Diverticulosis Diet (GEN), Diverticulosis (GEN) Activity/Diet/Wound Care/Special Instructions: Repeat colonoscopy 3 years, 2024 Discharge Disposition: HOME SELF-CARE
[2022-08-25 08:02] VITALS: RESP 16
[2022-08-25 08:17] VITALS: BP 157/82; PULSE 77
== END | disposition home or self-care (01) ==
LOC: ORWHC2ENDO 06:57
PROVIDERS: ATTEND Surgery Plastic and Reconstructive Surgery
DX: Z12.11 Encounter for screening for malignant neoplasm of colon (principal); D12.3 Benign neoplasm of transverse colon; D12.5 Benign neoplasm of sigmoid colon; K64.0 First degree hemorrhoids; K57.30 Diverticulosis of large intestine without perforation or abscess without bleeding; Z86.010 Personal history of colon polyps; E11.9 Type 2 diabetes mellitus without complications; K21.9 Gastro-esophageal reflux disease without esophagitis; E78.5 Hyperlipidemia, unspecified; I10 Essential (primary) hypertension; M19.90 Unspecified osteoarthritis, unspecified site; E07.9 Disorder of thyroid, unspecified; Z86.16 Personal history of COVID-19; Z90.49 Acquired absence of other specified parts of digestive tract; Z98.84 Bariatric surgery status; Z98.51 Tubal ligation status; Z96.653 Presence of artificial knee joint, bilateral; Z87.891 Personal history of nicotine dependence; Z82.49 Family history of ischemic heart disease and other diseases of the circulatory system; Z79.899 Other long term (current) drug therapy
CPT/HCPCS: 45380; J2250; J3010; J2704; J2001; 88305

== ENCOUNTER → 2023-11-02 | Outpatient (CLI) | payer OTHER ==
--- NOTE | 2023-11-03 22:37 | MM ---
Reason for Exam: Screening (asymptomatic). Last mammogram was performed 1 year(s) and 11 month(s) ago. Patient History: Menarche at age 10. Patient has no children. Postmenopausal. 02/15/2002, Benign Stereotactic Core Biopsy on the left side. Maternal cousin had breast cancer. Risk Values: Sanaz 5 year model risk: 2.2%. NCI Lifetime model risk: 9.8%. Prior Study Comparison: 04/01/2016 Bilateral Screening Mammogram, [facility]. 03/30/2018 Bilateral Screening Mammogram, [facility]. 11/30/2021 Bilateral Screening Mammogram, [facility]. Tissue Density: There are scattered fibroglandular densities. Findings: Analyzed By CAD. There is no suspicious group of microcalcifications or new suspicious mass in either breast. Overall Assessment: Negative, BI-RAD 1 Management: Screening Mammogram of both breasts in 1 year. . Patient should continue monthly self-breast exams. A clinical breast exam by your physician is recommended on an annual basis. This exam should not preclude additional follow-up of suspicious palpable abnormalities. Note on Sanaz scores and lifetime risk: 1. A Sanaz score greater than 3% is considered moderate risk. If this is the case, consider specialist referral to assess eligibility for a risk reducing agent. 2. If overall lifetime risk for the development of breast cancer is 20% or higher, the patient may qualify for future screening with alternating mammogram and breast MRI. Electronically signed and approved by: Molly Galdamez M.D. Radiologist
== END | disposition home or self-care (01) ==
LOC: RADMAMWWP 07:24
PROVIDERS: ATTEND Obstetrics & Gynecology
DX: Z12.31 Encounter for screening mammogram for malignant neoplasm of breast (principal); Z80.3 Family history of malignant neoplasm of breast; Z78.0 Asymptomatic menopausal state
CPT/HCPCS: 77067

== ENCOUNTER → 2025-01-11 | Outpatient (CLI) | payer OTHER ==
--- NOTE | 2025-01-11 08:37 | MM ---
Reason for Exam: Screening (asymptomatic). Last mammogram was performed 1 year(s) and 2 month(s) ago. Patient History: Menarche at age 10. Patient has no children. Postmenopausal. 02/15/2002, Benign Stereotactic Core Biopsy on the left side. Maternal cousin had breast cancer. Risk Values: Sanaz 5 year model risk: 2.3%. NCI Lifetime model risk: 9.5%. Prior Study Comparison: 03/30/2018 Bilateral Screening Mammogram, [facility]. 11/30/2021 Bilateral Screening Mammogram, [facility]. 11/02/2023 Bilateral MG screening mammo w CAD, [facility]. Tissue Density: The breasts are heterogeneously dense, which may obscure small masses. Findings: Analyzed By CAD. Right breast: There is no suspicious group of microcalcifications or new suspicious mass. Benign-appearing calcifications right breast. Left breast: There is no suspicious group of microcalcifications or new suspicious mass. Benign-appearing calcifications left breast. Overall Assessment: Benign, BI-RAD 2 Management: Screening Mammogram of both breasts in [address] [facility] will attempt to contact patient to return for supplemental views and ultrasound if indicated. Patient should continue monthly self-breast exams. A clinical breast exam by your physician is recommended on an annual basis. This exam should not preclude additional follow-up of suspicious palpable abnormalities. Note on Sanaz scores and lifetime risk: 1. A Sanaz score greater than 3% is considered moderate risk. If this is the case, consider specialist referral to assess eligibility for a risk reducing agent. 2. If overall lifetime risk for the development of breast cancer is 20% or higher, the patient may qualify for future screening with alternating mammogram and breast MRI. [facility], , 01/11/2025 8:35 AM. Electronically signed and approved by: Narinder Jerry DO
--- NOTE | 2025-01-11 09:52 | BD ---
EXAMINATION TYPE: Axial Bone Density DATE OF EXAM: 01/11/2025 CLINICAL HISTORY: 64 years old Female. ICD-10 CODE: Z780 POST STEVEN WITHOUT HRT , Additional History: Height: 61.7 in Weight: 186 lbs MEDICATIONS: Thyroid Medications: yes Which medication: Levothyroxine How Lon+ years EXAM MEASUREMENTS: Bone mineral densitometry was performed using the [employer] System. Bone mineral density as measured about the Lumbar spine is: ----- L1-L4(G/cm2): 1.337 T Score Values are as follows: ----- L1: 1.1 ----- L2: 0.8 ----- L3: 2.0 ----- L4: 1.2 ----- L1-L4: 1.3 Z Score Values are as follows: ----- L1: 1.9 ----- L2: 1.6 ----- L3: 2.8 ----- L4: 2.0 ----- L1-L4: 2.1 Bone mineral density has: Increased 1.9% since study of: 02/02/2022 Bone mineral density about the R hip (g/cm2): 0.926 Bone mineral density about the L hip (g/cm2): 1.020 T Score values are as follows: -----R Neck: -1.4 -----L Neck: -1.1 -----R Total: -0.6 -----L Total: 0.1 Z Score values are as follows: -----R Neck: -0.5 -----L Neck: -0.1 -----R Total: 0.0 -----L Total: 0.7 Bone mineral density has: Increased 0.1% since study of: 02/02/2022 FRAX%s: The graph provided illustrates a 7.9% chance for a major osteoporotic fx and a 0.7% chance fo r the hips probability for fx in 10 years time. IMPRESSION: Normal (Values between +1 and -1 indicate normal bone mass). Consider repeating this study in 5 year s or sooner if there is some new clinical indication. NOTE: T-SCORE=SD OF THE YOUNG ADULT MEAN. [facility], , 01/11/2025 9:50 AM
== END | disposition home or self-care (01) ==
LOC: RADMAMWWP 06:51
PROVIDERS: ATTEND Family Medicine
DX: Z12.31 Encounter for screening mammogram for malignant neoplasm of breast (principal); R92.333 Mammographic heterogeneous density, bilateral breasts; R92.1 Mammographic calcification found on diagnostic imaging of breast; Z78.0 Asymptomatic menopausal state; Z80.3 Family history of malignant neoplasm of breast
CPT/HCPCS: 77067; 77080